=== PATIENT | male | born 1985 | race Caucasian/White ===

== ENCOUNTER → 2016-05-18 | Outpatient (CLI) | payer OTHER ==
[~2016-05-18] MED LIST: IOPAMIDOL (ISOVUE-300) 50 ML VIAL IV ONE
--- NOTE | 2016-05-18 19:09 | CT ---
Contrast-Enhanced CT Scan of the Abdomen and Pelvis Clinical History: 22-year-old male with right lower quadrant pain for 4 days, although his symptoms h ave intensified over the last 2 days. Rule out appendicitis. The patient denies any prior abdominal s urgical history. Technique: Neither oral nor retrograde rectal contrast was administered. The patient did receive 99 m L of IV Isovue-300 without complication, and a multidetector helical CT scan was obtained from the gal ng bases inferiorly through the proximal femora, with images reformatted at 5.00 and 1.50 mm incremen ts, and reviewed at a variety of window and level settings. Parasagittal and paracoronal reconstructe d images are reviewed on the workstation. The DFOV is 45.0 cm. A dose reduction protocol was used. Comparison Study: None. Findings: Contrast-Enhanced CT Scan of the Abdomen: There is some minimal subsegmental atelectasis versus linea r scarring in the right middle lobe and in the lingula. There is no pleural or pericardial effusion. There is mild diminished attenuation associated with the liver, consistent with low-grade steatosis. There is no focal hepatic mass. There is no intra or extrahepatic bile duct dilatation. The gallbladd er, pancreas, spleen, adrenal glands, and the kidneys are normal. Moderate subcutaneous and centripet al obesity is present. The abdominal aorta and the IVC are normal in caliber. The splenic vein, super ior mesenteric vein, and the main portal vein are patent. There is intraluminal fluid within portions of the jejunum and ileum with some areas of mild wall thickening, suggestive of an enteritis. The no rmal-appearing appendix is seen on axial series 4, images 162-180, and also demonstrated on coronal s eries 5, images 43 to 49. There is no pericecal or periappendiceal inflammation. There there is no in tra-abdominal abscess, ascites, or pneumoperitoneum. The osseous structures are age-appropriate. Contrast-Enhanced CT Scan of the Pelvis: The urinary bladder is moderately distended. The prostate gl and and the seminal vesicles are normal. There is no free fluid or adenopathy.There are a couple of p hleboliths identified. There is no ureterolithiasis. A vacuum phenomenon is associated with portions of the SI joints. Impression: 1. Normal CT appearance of the appendix. 2. Query mild small bowel enteritis, with no mechanical obstruction. Results were called to Dr. Burak Bailey, as requested. A test result has been communicated to a licensed care provider and documented in [employer], 7:02:47 PM , 05/18/2016, [employer] Message ID [id number].
== END ==
LOC: FIMAGING 17:48
PROVIDERS: ATTEND Internal Medicine
DX: Z03.89 Encounter for observation for other suspected diseases and conditions ruled out (principal); R10.31 Right lower quadrant pain
CPT/HCPCS: Q9967

== ENCOUNTER 2017-09-11 10:47 | Emergency (ER) | payer OTHER ==
[2017-09-11 10:55] VITALS: BP 138/83
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
== END 2017-09-11 11:18 | disposition home or self-care (01) ==
LOC: CED 10:47
PROC: 2W2DX4Z Dressing of Left Lower Arm using Bandage (ICD-10-PCS; principal; 2017-09-11)
DX: T22.112A Burn of first degree of left forearm, initial encounter (principal); X18.XXXA Contact with other hot metals, initial encounter; Y92.89 Other specified places as the place of occurrence of the external cause; Y99.0 Civilian activity done for income or pay; Y93.89 Activity, other specified